=== PATIENT | female | born 1980 | race Caucasian/White ===

== ENCOUNTER 2018-06-01 15:30 | Inpatient (IN) | END 2018-06-04 11:30 | disposition home or self-care (01) | DRG 781 ==

== ENCOUNTER 2018-07-16 19:40 | Outpatient (CLI) | END 2018-07-16 23:44 | disposition home or self-care (01) ==

== ENCOUNTER 2018-07-17 11:31 | Outpatient (CLI) | END 2018-07-17 15:35 | disposition home or self-care (01) ==

== ENCOUNTER 2018-08-12 21:22 | Outpatient (CLI) | END 2018-08-13 02:45 | disposition home or self-care (01) ==

== ENCOUNTER 2018-08-13 23:21 | Outpatient (CLI) | END 2018-08-14 00:18 | disposition home or self-care (01) ==

== ENCOUNTER 2018-08-17 06:23 | Inpatient (IN) | END 2018-08-24 13:25 | disposition home or self-care (01) | DRG 788 ==